=== PATIENT | male | born 1970 | race Caucasian/White ===

== ENCOUNTER 2021-09-19 16:25 | Inpatient (IN) | payer OTHER ==
[2021-09-19 17:28] VITALS: BMI 26.9
[2021-09-19] MEDS ORDERED: DICYCLOMINE HCL 10 MG CAPSULE PO PRN (18:06)
[2021-09-19] MEDS ORDERED: BENZOCAINE/MENTHOL (CHLORASEPTIC ) LOZENGE MM PRN (18:06)
[2021-09-19] MEDS ORDERED: BISMUTH SUBSALICYLATE 524 MG/30 ML PO PRN (18:06)
[2021-09-19] MEDS ORDERED: MAGNESIUM HYDROX 2400MG/30ML ORAL SUSPENSION 30 ML CUP PO PRN (18:06)
[2021-09-19] MEDS ORDERED: chlordiazePOXIDE HCL 25 MG CAPSULE PO ONE (18:06)
[2021-09-19] MEDS ORDERED: chlordiazePOXIDE HCL 25 MG CAPSULE PO PRN (18:06)
[2021-09-19] MEDS ORDERED: ACETAMINOPHEN 325 MG TABLET (FP) PO PRN ×2 (18:06)
[2021-09-19] MEDS ORDERED: LOPERAMIDE HCL 2 MG CAPSULE PO PRN (18:06)
[2021-09-19] MEDS ORDERED: IBUPROFEN 400 MG TABLET (FP) PO PRN (18:06)
[2021-09-19] MEDS ORDERED: MAG HYDROX/AL HYDROX/SIMETH 30 ML UNIT-DOSE CUP PO PRN (18:06)
[2021-09-19] MEDS ORDERED: ONDANSETRON *ODT* 4 MG TABLET SL PRN (18:06)
[2021-09-19] MEDS ORDERED: MAGNESIUM CITRATE 300 ML BOTTLE PO PRN (18:06)
[2021-09-19] MEDS: THIAMINE HCL 100 MG TABLET (FP) PO SCH (22:16)
[2021-09-19] MEDS: chlordiazePOXIDE HCL 25 MG CAPSULE PO SCH (22:16)
[2021-09-19] MEDS: MELATONIN 5 MG TABLETS PO SCH (22:16)
[2021-09-19] MEDS: hydrOXYzine PAMOATE 25 MG CAPSULE (FP) PO PRN (22:18)
[2021-09-20] MEDS: chlordiazePOXIDE HCL 25 MG CAPSULE PO SCH ×4 (05:11→22:12)
[2021-09-20] MEDS: metFORMIN HCL 500 MG TABLET (FP) PO SCH ×2 (07:25→17:50)
[2021-09-20] MEDS: PANTOPRAZOLE 20 MG TABLET PO SCH (10:24)
[2021-09-20] MEDS: PRENATAL VITAMINS W/ FOLIC ACID TABLET (FP) PO SCH (10:24)
[2021-09-20] MEDS: DIGOXIN 0.25 MG TABLET PO SCH (12:34)
[2021-09-20] MEDS: RIVAROXABAN 20 MG TABLET PO SCH (12:35)
[2021-09-20 12:45] LABS: HEMATOCRIT 35.6 % (35.4-49); HEMOGLOBIN 11.3 GM/dL (11.7-16.9); MCH 25.9 pg (25.7-33.7); MCHC 31.9 g/dl (32.0-35.9); MEAN CELL VOLUME 81.3 fl (80-96); MEAN PLT VOLUME 8.1 fl (7.5-11.1); PLATELET COUNT 180 10^3/uL (134-434); RBC 4.37 M/mm3 (4.00-5.60); RDW 16.5 % (11.9-15.9)
[2021-09-20 12:55] LABS: ALBUMIN 3.4 g/dl (3.4-5.0); CALCIUM 8.9 mg/dL (8.5-10.1)
[2021-09-20 12:56] LABS: BLOOD UREA NITROGEN 9.6 mg/dL (7-18)
[2021-09-20 12:58] LABS: CREATININE 0.5 mg/dL (0.55-1.3)
[2021-09-20 13:00] LABS: BILIRUBIN,TOTAL 0.8 mg/dL (0.2-1); TOT PROT 6.7 g/dl (6.4-8.2)
[2021-09-20] MEDS: THIAMINE HCL 100 MG TABLET (FP) PO SCH (22:12)
[2021-09-20] MEDS: MELATONIN 5 MG TABLETS PO SCH (22:12)
[2021-09-20] MEDS: hydrOXYzine PAMOATE 25 MG CAPSULE (FP) PO PRN (22:13)
[2021-09-21] MEDS: chlordiazePOXIDE HCL 25 MG CAPSULE PO SCH ×4 (05:06→22:10)
[2021-09-21] MEDS: metFORMIN HCL 500 MG TABLET (FP) PO SCH ×2 (06:20→17:39)
[2021-09-21] MEDS: PANTOPRAZOLE 20 MG TABLET PO SCH (10:25)
[2021-09-21] MEDS: DIGOXIN 0.25 MG TABLET PO SCH (10:25)
[2021-09-21] MEDS: FLUoxetine HCL 20 MG CAPSULE PO SCH (10:25)
[2021-09-21] MEDS: PRENATAL VITAMINS W/ FOLIC ACID TABLET (FP) PO SCH (10:25)
[2021-09-21] MEDS: RIVAROXABAN 20 MG TABLET PO SCH (10:26)
[2021-09-21 16:08] LABS: SARS-CoV-2 NAA Not Detected (Not Detected)
[2021-09-21] MEDS: THIAMINE HCL 100 MG TABLET (FP) PO SCH (22:10)
[2021-09-21] MEDS: MELATONIN 5 MG TABLETS PO SCH (22:11)
[2021-09-22] MEDS ORDERED: chlordiazePOXIDE HCL 10 MG CAPSULE PO PRN
[2021-09-22] MEDS: chlordiazePOXIDE HCL 10 MG CAPSULE PO SCH ×4 (05:21→22:29)
[2021-09-22] MEDS: metFORMIN HCL 500 MG TABLET (FP) PO SCH ×2 (06:56→17:44)
[2021-09-22] MEDS: PRENATAL VITAMINS W/ FOLIC ACID TABLET (FP) PO SCH (10:19)
[2021-09-22] MEDS: DIGOXIN 0.25 MG TABLET PO SCH (10:19)
[2021-09-22] MEDS: PANTOPRAZOLE 20 MG TABLET PO SCH (10:20)
[2021-09-22] MEDS: FLUoxetine HCL 20 MG CAPSULE PO SCH (10:20)
[2021-09-22] MEDS: RIVAROXABAN 20 MG TABLET PO SCH (10:20)
[2021-09-22] MEDS: MUPIROCIN 2% TOPICAL OINTMENT 22 GM TUBE TP SCH ×2 (14:58→22:29)
[2021-09-22] MEDS ORDERED: MUPIROCIN CA 2% TOPICAL CREAM 15 GM TUBE TP SCH (22:00)
[2021-09-22] MEDS: THIAMINE HCL 100 MG TABLET (FP) PO SCH (22:29)
[2021-09-22] MEDS: MELATONIN 5 MG TABLETS PO SCH (22:30)
[2021-09-23] MEDS: chlordiazePOXIDE HCL 10 MG CAPSULE PO SCH ×2 (04:56→17:45)
[2021-09-23] MEDS: metFORMIN HCL 500 MG TABLET (FP) PO SCH ×2 (05:59→17:45)
[2021-09-23] MEDS: METHOCARBAMOL 500 MG TABLET PO PRN (10:26)
[2021-09-23] MEDS: FLUoxetine HCL 20 MG CAPSULE PO SCH (10:26)
[2021-09-23] MEDS: PANTOPRAZOLE 20 MG TABLET PO SCH (10:26)
[2021-09-23] MEDS: PRENATAL VITAMINS W/ FOLIC ACID TABLET (FP) PO SCH (10:26)
[2021-09-23] MEDS: DIGOXIN 0.25 MG TABLET PO SCH (10:27)
[2021-09-23] MEDS: MUPIROCIN 2% TOPICAL OINTMENT 22 GM TUBE TP SCH ×2 (10:27→22:07)
[2021-09-23] MEDS: hydrOXYzine PAMOATE 25 MG CAPSULE (FP) PO PRN ×2 (10:27→22:07)
[2021-09-23] MEDS: RIVAROXABAN 20 MG TABLET PO SCH (10:27)
[2021-09-23] MEDS: MELATONIN 5 MG TABLETS PO SCH (22:07)
[2021-09-23] MEDS: THIAMINE HCL 100 MG TABLET (FP) PO SCH (22:07)
[2021-09-24] MEDS ORDERED: chlordiazePOXIDE HCL 10 MG CAPSULE PO ONE (05:00)
[2021-09-24] MEDS: metFORMIN HCL 500 MG TABLET (FP) PO SCH (06:16)
[2021-09-24 09:15] VITALS: BP 125/55; PULSE 67; TEMP 96.9
[2021-09-24] MEDS: FLUoxetine HCL 20 MG CAPSULE PO SCH (10:29)
[2021-09-24] MEDS: RIVAROXABAN 20 MG TABLET PO SCH (10:29)
[2021-09-24] MEDS: DIGOXIN 0.25 MG TABLET PO SCH (10:29)
[2021-09-24] MEDS: METHOCARBAMOL 500 MG TABLET PO PRN (10:29)
[2021-09-24] MEDS: PRENATAL VITAMINS W/ FOLIC ACID TABLET (FP) PO SCH (10:29)
[2021-09-24] MEDS: PANTOPRAZOLE 20 MG TABLET PO SCH (10:29)
[2021-09-24] MEDS: MUPIROCIN 2% TOPICAL OINTMENT 22 GM TUBE TP SCH (10:30)
== END 2021-09-24 11:35 | disposition other institution (70) | DRG 775 ==
LOC: YASAS 16:25 → Y6N 17:44
PROVIDERS: ADMIT Allergy & Immunology; ATTEND Surgery
PROC: HZ2ZZZZ Detoxification Services for Substance Abuse Treatment (ICD-10-PCS; principal; 2021-09-19)
DX: F10.230 Alcohol dependence with withdrawal, uncomplicated (principal); F10.24 Alcohol dependence with alcohol-induced mood disorder; F43.10 Post-traumatic stress disorder, unspecified; F32.A Depression, unspecified; K21.9 Gastro-esophageal reflux disease without esophagitis; E11.9 Type 2 diabetes mellitus without complications; Z79.84 Long term (current) use of oral hypoglycemic drugs; I48.91 Unspecified atrial fibrillation; Z79.01 Long term (current) use of anticoagulants; Z62.810 Personal history of physical and sexual abuse in childhood; Z91.51 Personal history of suicidal behavior
CPT/HCPCS: 36415; 80053; 80162; 82962; 85027; 86780; 93005; 93010; C9803-CS; U0003; U0005

== ENCOUNTER 2021-09-24 11:39 | Inpatient (IN) | payer OTHER ==
[2021-09-24] MEDS ORDERED: MAGNESIUM HYDROX 2400MG/30ML ORAL SUSPENSION 30 ML CUP PO PRN (12:48)
[2021-09-24] MEDS ORDERED: P-EPHED 60MG/TRIPROLIDI 2.5MG TABLET PO PRN (12:48)
[2021-09-24] MEDS ORDERED: guaiFENesin 200 MG/10 ML 10 ML UNIT-DOSE CUPS PO PRN (12:48)
[2021-09-24] MEDS ORDERED: MAGNESIUM CITRATE 300 ML BOTTLE PO PRN (12:48)
[2021-09-24] MEDS ORDERED: LOPERAMIDE HCL 2 MG CAPSULE PO PRN (12:48)
[2021-09-24] MEDS ORDERED: MAG HYDROX/AL HYDROX/SIMETH 30 ML UNIT-DOSE CUP PO PRN (12:48)
[2021-09-24] MEDS ORDERED: BENZOCAINE/MENTHOL (CHLORASEPTIC ) LOZENGE MM PRN (12:48)
[2021-09-24] MEDS ORDERED: IBUPROFEN 400 MG TABLET (FP) PO PRN (12:48)
[2021-09-24] MEDS ORDERED: NICOTINE 10 MG CARTRIDGE (INHALER) IH PRN (12:48)
[2021-09-24] MEDS ORDERED: hydrOXYzine PAMOATE 25 MG CAPSULE (FP) PO SCH (14:00)
[2021-09-24] MEDS: METHOCARBAMOL 500 MG TABLET PO SCH ×3 (14:39→21:34)
[2021-09-24] MEDS: metFORMIN HCL 500 MG TABLET (FP) PO SCH (17:13)
[2021-09-24] MEDS: THIAMINE HCL 100 MG TABLET (FP) PO SCH (21:33)
[2021-09-24] MEDS: MELATONIN 5 MG TABLETS PO SCH (21:33)
[2021-09-24] MEDS: FAMOTIDINE 20 MG TABLET PO SCH (21:33)
[2021-09-25] MEDS: metFORMIN HCL 500 MG TABLET (FP) PO SCH ×2 (06:21→16:14)
[2021-09-25] MEDS: PRENATAL VITAMINS W/ FOLIC ACID TABLET (FP) PO SCH (10:14)
[2021-09-25] MEDS: NICOTINE 7 MG/24 HOURS TOPICAL PATCH TD SCH (10:14)
[2021-09-25] MEDS: DIGOXIN 0.25 MG TABLET PO SCH (10:14)
[2021-09-25] MEDS: FAMOTIDINE 20 MG TABLET PO SCH ×2 (10:14→21:14)
[2021-09-25] MEDS: FLUoxetine HCL 20 MG CAPSULE PO SCH (10:15)
[2021-09-25] MEDS: RIVAROXABAN 20 MG TABLET PO SCH (10:15)
[2021-09-25] MEDS: METHOCARBAMOL 500 MG TABLET PO SCH ×4 (10:15→21:14)
[2021-09-25 13:03] LABS: HIV INTERPRETATION NEGATIVE (NEGATIVE)
[2021-09-25] MEDS: THIAMINE HCL 100 MG TABLET (FP) PO SCH (21:14)
[2021-09-25] MEDS: MELATONIN 5 MG TABLETS PO SCH (21:14)
[2021-09-26] MEDS: metFORMIN HCL 500 MG TABLET (FP) PO SCH ×2 (06:40→16:26)
[2021-09-26] MEDS: PRENATAL VITAMINS W/ FOLIC ACID TABLET (FP) PO SCH (10:34)
[2021-09-26] MEDS: METHOCARBAMOL 500 MG TABLET PO SCH ×4 (10:35→21:17)
[2021-09-26] MEDS: FLUoxetine HCL 20 MG CAPSULE PO SCH (10:35)
[2021-09-26] MEDS: FAMOTIDINE 20 MG TABLET PO SCH ×2 (10:35→21:17)
[2021-09-26] MEDS: DIGOXIN 0.25 MG TABLET PO SCH (10:35)
[2021-09-26] MEDS: NICOTINE 7 MG/24 HOURS TOPICAL PATCH TD SCH (10:35)
[2021-09-26] MEDS: RIVAROXABAN 20 MG TABLET PO SCH (10:47)
[2021-09-26] MEDS: ACETAMINOPHEN 325 MG TABLET (FP) PO PRN (14:42)
[2021-09-26] MEDS: hydrOXYzine PAMOATE 25 MG CAPSULE (FP) PO PRN (16:26)
[2021-09-26] MEDS: THIAMINE HCL 100 MG TABLET (FP) PO SCH (21:17)
[2021-09-26] MEDS: MELATONIN 5 MG TABLETS PO SCH (21:17)
[2021-09-27] MEDS: metFORMIN HCL 500 MG TABLET (FP) PO SCH ×2 (06:11→17:25)
[2021-09-27] MEDS: RIVAROXABAN 20 MG TABLET PO SCH (10:16)
[2021-09-27] MEDS: PRENATAL VITAMINS W/ FOLIC ACID TABLET (FP) PO SCH (10:16)
[2021-09-27] MEDS: FLUoxetine HCL 20 MG CAPSULE PO SCH (10:16)
[2021-09-27] MEDS: NICOTINE 7 MG/24 HOURS TOPICAL PATCH TD SCH (10:16)
[2021-09-27] MEDS: METHOCARBAMOL 500 MG TABLET PO SCH ×4 (10:16→21:18)
[2021-09-27] MEDS: FAMOTIDINE 20 MG TABLET PO SCH ×2 (10:16→21:18)
[2021-09-27] MEDS: DIGOXIN 0.25 MG TABLET PO SCH (10:46)
[2021-09-27] MEDS: THIAMINE HCL 100 MG TABLET (FP) PO SCH (21:18)
[2021-09-27] MEDS: MELATONIN 5 MG TABLETS PO SCH (21:18)
[2021-09-28] MEDS: metFORMIN HCL 500 MG TABLET (FP) PO SCH ×2 (06:17→16:31)
[2021-09-28] MEDS: NICOTINE 7 MG/24 HOURS TOPICAL PATCH TD SCH (10:18)
[2021-09-28] MEDS: FLUoxetine HCL 20 MG CAPSULE PO SCH (10:18)
[2021-09-28] MEDS: METHOCARBAMOL 500 MG TABLET PO SCH ×4 (10:18→21:37)
[2021-09-28] MEDS: DIGOXIN 0.25 MG TABLET PO SCH (10:18)
[2021-09-28] MEDS: PRENATAL VITAMINS W/ FOLIC ACID TABLET (FP) PO SCH (10:18)
[2021-09-28] MEDS: RIVAROXABAN 20 MG TABLET PO SCH (10:18)
[2021-09-28] MEDS: FAMOTIDINE 20 MG TABLET PO SCH ×2 (10:18→21:37)
[2021-09-28 16:08] LABS: SARS-CoV-2 NAA Not Detected (Not Detected)
[2021-09-28] MEDS: THIAMINE HCL 100 MG TABLET (FP) PO SCH (21:37)
[2021-09-28] MEDS: MELATONIN 5 MG TABLETS PO SCH (21:37)
[2021-09-29] MEDS: metFORMIN HCL 500 MG TABLET (FP) PO SCH ×2 (06:00→16:38)
[2021-09-29] MEDS: INSULIN SLIDING SCALE (NOVOLOG) 1 VIAL SQ SCH ×2 (09:32→16:40)
[2021-09-29] MEDS ORDERED: INSULIN SLIDING SCALE (NOVOLOG) 1 VIAL SQ ONE (09:58)
[2021-09-29] MEDS: PRENATAL VITAMINS W/ FOLIC ACID TABLET (FP) PO SCH (09:59)
[2021-09-29] MEDS: FLUoxetine HCL 20 MG CAPSULE PO SCH (10:00)
[2021-09-29] MEDS: DIGOXIN 0.25 MG TABLET PO SCH (10:00)
[2021-09-29] MEDS: FAMOTIDINE 20 MG TABLET PO SCH ×2 (10:00→21:15)
[2021-09-29] MEDS: METHOCARBAMOL 500 MG TABLET PO SCH ×4 (10:01→21:15)
[2021-09-29] MEDS: NICOTINE 7 MG/24 HOURS TOPICAL PATCH TD SCH (10:38)
[2021-09-29] MEDS: RIVAROXABAN 20 MG TABLET PO SCH (10:49)
[2021-09-29] MEDS: MELATONIN 5 MG TABLETS PO SCH (21:15)
[2021-09-29] MEDS: THIAMINE HCL 100 MG TABLET (FP) PO SCH (21:15)
[2021-09-30] MEDS: metFORMIN HCL 500 MG TABLET (FP) PO SCH ×2 (06:06→16:31)
[2021-09-30] MEDS: INSULIN SLIDING SCALE (NOVOLOG) 1 VIAL SQ SCH ×2 (06:07→16:32)
[2021-09-30] MEDS: METHOCARBAMOL 500 MG TABLET PO SCH ×4 (10:15→21:27)
[2021-09-30] MEDS: RIVAROXABAN 20 MG TABLET PO SCH (10:15)
[2021-09-30] MEDS: FAMOTIDINE 20 MG TABLET PO SCH ×2 (10:15→21:27)
[2021-09-30] MEDS: DIGOXIN 0.25 MG TABLET PO SCH (10:15)
[2021-09-30] MEDS: NICOTINE 7 MG/24 HOURS TOPICAL PATCH TD SCH (10:16)
[2021-09-30] MEDS: FLUoxetine HCL 20 MG CAPSULE PO SCH (10:16)
[2021-09-30] MEDS: PRENATAL VITAMINS W/ FOLIC ACID TABLET (FP) PO SCH (10:16)
[2021-09-30] MEDS: hydrOXYzine PAMOATE 25 MG CAPSULE (FP) PO PRN (10:16)
[2021-09-30] MEDS: THIAMINE HCL 100 MG TABLET (FP) PO SCH (21:27)
[2021-09-30] MEDS: MELATONIN 5 MG TABLETS PO SCH (21:27)
[2021-10-01] MEDS: metFORMIN HCL 500 MG TABLET (FP) PO SCH ×2 (06:09→16:56)
[2021-10-01] MEDS: INSULIN SLIDING SCALE (NOVOLOG) 1 VIAL SQ SCH ×2 (06:11→16:57)
[2021-10-01] MEDS: FAMOTIDINE 20 MG TABLET PO SCH ×2 (10:00→21:28)
[2021-10-01] MEDS: PRENATAL VITAMINS W/ FOLIC ACID TABLET (FP) PO SCH (10:00)
[2021-10-01] MEDS: FLUoxetine HCL 20 MG CAPSULE PO SCH (10:00)
[2021-10-01] MEDS: METHOCARBAMOL 500 MG TABLET PO SCH ×4 (10:01→21:28)
[2021-10-01] MEDS: NICOTINE 7 MG/24 HOURS TOPICAL PATCH TD SCH (10:01)
[2021-10-01] MEDS: hydrOXYzine PAMOATE 25 MG CAPSULE (FP) PO PRN (10:01)
[2021-10-01] MEDS: DIGOXIN 0.25 MG TABLET PO SCH (10:01)
[2021-10-01] MEDS: RIVAROXABAN 20 MG TABLET PO SCH (10:01)
[2021-10-01] MEDS: MELATONIN 5 MG TABLETS PO SCH (21:28)
[2021-10-01] MEDS: THIAMINE HCL 100 MG TABLET (FP) PO SCH (21:28)
[2021-10-02] MEDS: metFORMIN HCL 500 MG TABLET (FP) PO SCH ×2 (06:08→16:33)
[2021-10-02] MEDS: INSULIN SLIDING SCALE (NOVOLOG) 1 VIAL SQ SCH ×2 (06:09→17:16)
[2021-10-02] MEDS: METHOCARBAMOL 500 MG TABLET PO SCH ×4 (10:33→21:25)
[2021-10-02] MEDS: RIVAROXABAN 20 MG TABLET PO SCH (10:33)
[2021-10-02] MEDS: FLUoxetine HCL 20 MG CAPSULE PO SCH (10:33)
[2021-10-02] MEDS: PRENATAL VITAMINS W/ FOLIC ACID TABLET (FP) PO SCH (10:33)
[2021-10-02] MEDS: NICOTINE 7 MG/24 HOURS TOPICAL PATCH TD SCH (10:34)
[2021-10-02] MEDS: DIGOXIN 0.25 MG TABLET PO SCH (10:34)
[2021-10-02] MEDS: FAMOTIDINE 20 MG TABLET PO SCH ×2 (10:34→21:25)
[2021-10-02] MEDS: THIAMINE HCL 100 MG TABLET (FP) PO SCH (21:24)
[2021-10-02] MEDS: MELATONIN 5 MG TABLETS PO SCH (21:25)
[2021-10-03] MEDS: metFORMIN HCL 500 MG TABLET (FP) PO SCH ×2 (06:17→16:21)
[2021-10-03] MEDS: INSULIN SLIDING SCALE (NOVOLOG) 1 VIAL SQ SCH ×2 (06:21→16:22)
[2021-10-03] MEDS: PRENATAL VITAMINS W/ FOLIC ACID TABLET (FP) PO SCH (09:52)
[2021-10-03] MEDS: RIVAROXABAN 20 MG TABLET PO SCH (09:52)
[2021-10-03] MEDS: DIGOXIN 0.25 MG TABLET PO SCH (09:52)
[2021-10-03] MEDS: FAMOTIDINE 20 MG TABLET PO SCH ×2 (09:52→21:14)
[2021-10-03] MEDS: NICOTINE 7 MG/24 HOURS TOPICAL PATCH TD SCH (09:52)
[2021-10-03] MEDS: FLUoxetine HCL 20 MG CAPSULE PO SCH (09:52)
[2021-10-03] MEDS: METHOCARBAMOL 500 MG TABLET PO SCH ×4 (09:52→21:14)
[2021-10-03] MEDS: THIAMINE HCL 100 MG TABLET (FP) PO SCH (21:14)
[2021-10-03] MEDS: MELATONIN 5 MG TABLETS PO SCH (21:14)
[2021-10-04] MEDS: metFORMIN HCL 500 MG TABLET (FP) PO SCH ×2 (06:18→16:52)
[2021-10-04] MEDS: INSULIN SLIDING SCALE (NOVOLOG) 1 VIAL SQ SCH ×2 (06:21→16:54)
[2021-10-04] MEDS: METHOCARBAMOL 500 MG TABLET PO SCH ×4 (10:11→21:09)
[2021-10-04] MEDS: FLUoxetine HCL 20 MG CAPSULE PO SCH (10:11)
[2021-10-04] MEDS: DIGOXIN 0.25 MG TABLET PO SCH (10:11)
[2021-10-04] MEDS: PRENATAL VITAMINS W/ FOLIC ACID TABLET (FP) PO SCH (10:11)
[2021-10-04] MEDS: RIVAROXABAN 20 MG TABLET PO SCH (10:11)
[2021-10-04] MEDS: FAMOTIDINE 20 MG TABLET PO SCH ×2 (10:11→21:09)
[2021-10-04] MEDS: ACETAMINOPHEN 325 MG TABLET (FP) PO PRN (10:12)
[2021-10-04] MEDS: NICOTINE 7 MG/24 HOURS TOPICAL PATCH TD SCH (10:12)
[2021-10-04] MEDS ORDERED: INSULIN SLIDING SCALE (NOVOLOG) 1 VIAL SQ ONE (16:51)
[2021-10-04] MEDS: THIAMINE HCL 100 MG TABLET (FP) PO SCH (21:09)
[2021-10-04] MEDS: MELATONIN 5 MG TABLETS PO SCH (21:10)
[2021-10-05] MEDS: metFORMIN HCL 500 MG TABLET (FP) PO SCH ×2 (06:08→17:02)
[2021-10-05] MEDS: INSULIN SLIDING SCALE (NOVOLOG) 1 VIAL SQ SCH ×2 (06:10→17:02)
[2021-10-05] MEDS: FAMOTIDINE 20 MG TABLET PO SCH ×2 (09:45→21:32)
[2021-10-05] MEDS: DIGOXIN 0.25 MG TABLET PO SCH (09:45)
[2021-10-05] MEDS: FLUoxetine HCL 20 MG CAPSULE PO SCH (09:45)
[2021-10-05] MEDS: METHOCARBAMOL 500 MG TABLET PO SCH ×4 (09:45→21:32)
[2021-10-05] MEDS: NICOTINE 7 MG/24 HOURS TOPICAL PATCH TD SCH (09:45)
[2021-10-05] MEDS: RIVAROXABAN 20 MG TABLET PO SCH (09:45)
[2021-10-05] MEDS: PRENATAL VITAMINS W/ FOLIC ACID TABLET (FP) PO SCH (09:45)
[2021-10-05] MEDS: hydrOXYzine PAMOATE 25 MG CAPSULE (FP) PO PRN ×2 (14:04→21:33)
[2021-10-05] MEDS: MELATONIN 5 MG TABLETS PO SCH (21:32)
[2021-10-05] MEDS: THIAMINE HCL 100 MG TABLET (FP) PO SCH (21:32)
[2021-10-06] MEDS: metFORMIN HCL 500 MG TABLET (FP) PO SCH ×2 (06:11→17:02)
[2021-10-06] MEDS: INSULIN SLIDING SCALE (NOVOLOG) 1 VIAL SQ SCH ×2 (06:12→17:05)
[2021-10-06] MEDS: FAMOTIDINE 20 MG TABLET PO SCH ×2 (10:08→21:11)
[2021-10-06] MEDS: FLUoxetine HCL 20 MG CAPSULE PO SCH (10:08)
[2021-10-06] MEDS: PRENATAL VITAMINS W/ FOLIC ACID TABLET (FP) PO SCH (10:08)
[2021-10-06] MEDS: METHOCARBAMOL 500 MG TABLET PO SCH ×4 (10:08→21:11)
[2021-10-06] MEDS: RIVAROXABAN 20 MG TABLET PO SCH (10:08)
[2021-10-06] MEDS: NICOTINE 7 MG/24 HOURS TOPICAL PATCH TD SCH (10:10)
[2021-10-06] MEDS: DIGOXIN 0.25 MG TABLET PO SCH (13:31)
[2021-10-06] MEDS: MELATONIN 5 MG TABLETS PO SCH (21:11)
[2021-10-06] MEDS: THIAMINE HCL 100 MG TABLET (FP) PO SCH (21:11)
[2021-10-07] MEDS: hydrOXYzine PAMOATE 25 MG CAPSULE (FP) PO PRN ×2 (06:29→21:05)
[2021-10-07] MEDS: metFORMIN HCL 500 MG TABLET (FP) PO SCH ×2 (06:30→16:31)
[2021-10-07] MEDS: INSULIN SLIDING SCALE (NOVOLOG) 1 VIAL SQ SCH ×2 (06:30→16:32)
[2021-10-07] MEDS: PRENATAL VITAMINS W/ FOLIC ACID TABLET (FP) PO SCH (10:04)
[2021-10-07] MEDS: FLUoxetine HCL 20 MG CAPSULE PO SCH (10:05)
[2021-10-07] MEDS: METHOCARBAMOL 500 MG TABLET PO SCH ×4 (10:05→21:04)
[2021-10-07] MEDS: NICOTINE 7 MG/24 HOURS TOPICAL PATCH TD SCH (10:05)
[2021-10-07] MEDS: RIVAROXABAN 20 MG TABLET PO SCH (10:05)
[2021-10-07] MEDS: FAMOTIDINE 20 MG TABLET PO SCH ×2 (10:05→21:04)
[2021-10-07] MEDS: DIGOXIN 0.25 MG TABLET PO SCH (10:06)
[2021-10-07] MEDS: MELATONIN 5 MG TABLETS PO SCH (21:04)
[2021-10-07] MEDS: THIAMINE HCL 100 MG TABLET (FP) PO SCH (21:04)
[2021-10-08] MEDS: metFORMIN HCL 500 MG TABLET (FP) PO SCH (06:21)
[2021-10-08] MEDS: INSULIN SLIDING SCALE (NOVOLOG) 1 VIAL SQ SCH (06:22)
[2021-10-08 06:59] VITALS: PULSE 70; TEMP 98
[2021-10-08 09:14] VITALS: BP 131/83
[2021-10-08] MEDS: FLUoxetine HCL 20 MG CAPSULE PO SCH (09:46)
[2021-10-08] MEDS: METHOCARBAMOL 500 MG TABLET PO SCH (09:46)
[2021-10-08] MEDS: PRENATAL VITAMINS W/ FOLIC ACID TABLET (FP) PO SCH (09:46)
[2021-10-08] MEDS: FAMOTIDINE 20 MG TABLET PO SCH (09:46)
[2021-10-08] MEDS: RIVAROXABAN 20 MG TABLET PO SCH (09:46)
[2021-10-08] MEDS: NICOTINE 7 MG/24 HOURS TOPICAL PATCH TD SCH (09:47)
[2021-10-08] MEDS: DIGOXIN 0.25 MG TABLET PO SCH (09:48)
== END 2021-10-08 10:07 | disposition home or self-care (01) | DRG 772 ==
LOC: YASAS 11:39 → Y3W 11:41
PROVIDERS: ADMIT Allergy & Immunology; ATTEND Psychiatry & Neurology Psychiatry
PROC: HZ42ZZZ Group Counseling for Substance Abuse Treatment, Cognitive-Behavioral (ICD-10-PCS; principal; 2021-09-24)
DX: F10.20 Alcohol dependence, uncomplicated (principal); F10.24 Alcohol dependence with alcohol-induced mood disorder; F41.9 Anxiety disorder, unspecified; F32.A Depression, unspecified; F42.9 Obsessive-compulsive disorder, unspecified; F43.10 Post-traumatic stress disorder, unspecified; I48.91 Unspecified atrial fibrillation; I10 Essential (primary) hypertension; K21.9 Gastro-esophageal reflux disease without esophagitis; Z62.810 Personal history of physical and sexual abuse in childhood; E11.9 Type 2 diabetes mellitus without complications; Z79.84 Long term (current) use of oral hypoglycemic drugs; Z79.01 Long term (current) use of anticoagulants; Z59.00 Homelessness unspecified
CPT/HCPCS: 36415; 80162; 82962; 87389; C9803-CS; U0003; U0005